=== PATIENT | female | born 1960 | race African-American/Black ===

== ENCOUNTER 2017-11-25 06:48 | Inpatient (IN) | payer SELFPAY ==
[2017-11-25 07:22] LABS: ADD MAN DIFF? NO
[2017-11-25] MEDS: diphenhydrAMINE 50 MG/ML VIAL IM (07:25)
[2017-11-25] MEDS: HALOPERIDOL LACTATE 5 MG/ML VIAL. IM (07:25)
[2017-11-25 07:27] LABS: BASO # 0.1 x10^3/uL (0.0-0.2); BASO % 1 % (0-3); EOS # 0.1 x10^3/uL (0.0-0.7); EOS % 1 % (0-3); HEMATOCRIT 41.6 % (36.0-47.0); HEMOGLOBIN 14.4 g/dL (12.0-15.5); LYMPH # 2.5 x10^3/uL (1.0-4.8); LYMPH % 30 % (24-48); MEAN CORPUSCULAR HEMOGLOBIN 31 pg (25-35); MEAN CORPUSCULAR HGB CONC 35 g/dL (31-37); MEAN CORPUSCULAR VOLUME 91 fL (79-100); MONO # 1.1 x10^3/uL (0.0-1.1); MONO % 13 % (0-9); NEUT # 4.5 x10^3uL (1.8-7.7); NEUT % 55 % (31-73); PLATELET COUNT 273 x10^3/uL (140-400); RED BLOOD COUNT 4.59 x10^6/uL (3.50-5.40); RED CELL DISTRIBUTION WIDTH 14.8 % (11.5-14.5); WHITE BLOOD COUNT 8.2 x10^3/uL (4.0-11.0)
[2017-11-25 07:42] LABS: AMPHETAMINE/METHAMPHETAMINE NEG (NEG); BARBITURATES NEG (NEG)
[2017-11-25 07:43] LABS: ALBUMIN/GLOBULIN RATIO 0.9 (1.0-1.7); BENZODIAZEPINES NEG (NEG); BLOOD UREA NITROGEN 8 mg/dL (7-20); BUN/CREATININE RATIO 6 (6-20); CALCIUM 9.1 mg/dL (8.5-10.1); CANNABINOIDS POS (NEG); COCAINE POS (NEG); CREATININE 1.3 mg/dL (0.6-1.0); ETHANOL, URINE NEG (NEG); GFR 51.1; GLUCOSE 104 mg/dL (70-99); METHADONE NEG (NEG); OPIATES NEG (NEG); PHENCYCLIDINE NEG (NEG); TOTAL BILIRUBIN 1.2 mg/dL (0.2-1.0); TOTAL PROTEIN 8.7 g/dL (6.4-8.2)
[2017-11-25 07:44] LABS: ALK PHOS 115 U/L (46-116); ALT (SGPT) 51 U/L (14-59); ANION GAP 9 (6-14); AST (SGOT) 51 U/L (15-37); CARBON DIOXIDE 25 mmol/L (21-32); CHLORIDE 102 mmol/L (98-107); POTASSIUM 3.1 mmol/L (3.5-5.1); SODIUM 136 mmol/L (136-145)
[2017-11-25 07:44] LABS: ETHANOL < 10 mg/dL (0-10)
[2017-11-25] MEDS ORDERED: AMMONIA AROMATIC 15% INHALANT AMPUL. (13:47)
[2017-11-25] MEDS: IV NORMAL SALINE 1000ML BAG 1,000 ML IV ×2 (16:26→21:10)
[2017-11-25] MEDS: POTASSIUM CHLORIDE 10MEQ 100 ML IV ×4 (17:20→22:30)
[2017-11-25] MEDS ORDERED: POTASSIUM CHLORIDE 40 MEQ in IV 1/2 NORMAL SALINE 500 ML IV (18:00)
[2017-11-25] MEDS: ENOXAPARIN 40 MG/0.4 ML SYRINGE. SQ (18:02)
[2017-11-26] MEDS: IV NORMAL SALINE 1000ML BAG 1,000 ML IV ×2 (02:11→09:36)
[2017-11-26 05:58] LABS: ADD MAN DIFF? NO
[2017-11-26 06:01] LABS: BASO # 0.1 x10^3/uL (0.0-0.2); BASO % 1 % (0-3); EOS # 0.1 x10^3/uL (0.0-0.7); EOS % 2 % (0-3); HEMATOCRIT 36.6 % (36.0-47.0); HEMOGLOBIN 12.3 g/dL (12.0-15.5); LYMPH # 2.2 x10^3/uL (1.0-4.8); LYMPH % 27 % (24-48); MEAN CORPUSCULAR HEMOGLOBIN 31 pg (25-35); MEAN CORPUSCULAR HGB CONC 34 g/dL (31-37); MEAN CORPUSCULAR VOLUME 92 fL (79-100); MONO # 0.8 x10^3/uL (0.0-1.1); MONO % 10 % (0-9); NEUT % 61 % (31-73); PLATELET COUNT 243 x10^3/uL (140-400); RED BLOOD COUNT 3.96 x10^6/uL (3.50-5.40); WHITE BLOOD COUNT 8.3 x10^3/uL (4.0-11.0)
[2017-11-26 06:22] LABS: ALBUMIN 2.7 g/dL (3.4-5.0); ALBUMIN/GLOBULIN RATIO 0.7 (1.0-1.7); ALK PHOS 84 U/L (46-116); ALT (SGPT) 37 U/L (14-59); ANION GAP 8 (6-14); AST (SGOT) 32 U/L (15-37); BLOOD UREA NITROGEN 9 mg/dL (7-20); BUN/CREATININE RATIO 8 (6-20); CALCIUM 8.1 mg/dL (8.5-10.1); CARBON DIOXIDE 24 mmol/L (21-32); CHLORIDE 108 mmol/L (98-107); CREATININE 1.1 mg/dL (0.6-1.0); GFR 61.9; GLUCOSE 94 mg/dL (70-99); POTASSIUM 3.8 mmol/L (3.5-5.1); SODIUM 140 mmol/L (136-145); TOTAL BILIRUBIN 0.6 mg/dL (0.2-1.0); TOTAL PROTEIN 6.7 g/dL (6.4-8.2)
[2017-11-26] MEDS ORDERED: chlordiazePOXIDE HCL 25 MG CAPSULE PO (08:45)
[2017-11-26] MEDS ORDERED: NICOTINE 21MG PATCH. TD (08:45)
[2017-11-26] MEDS ORDERED: ONDANSETRON PF 4 MG/2 ML VIAL. IV (08:45)
[2017-11-26] MEDS ORDERED: ZOLPIDEM 5 MG TABLET. PO (08:45)
[2017-11-26] MEDS ORDERED: MORPHINE SULFATE 2 MG/ML DISP.SYRIN. IV (08:45)
[2017-11-26] MEDS ORDERED: ACETAMINOPHEN 500 MG TABLET PO (08:45)
[2017-11-26] MEDS ORDERED: HYDROcodone/APAP 5/325MG 1 TAB TABLET PO (08:45)
[2017-11-26 09:06] LABS: BILIRUBIN,URINE NEGATIVE (NEG); CLARITY,URINE CLEAR; COLOR,URINE YELLOW; GLUCOSE,URINE NEGATIVE (NEG); NITRITE,URINE NEGATIVE (NEG); PROTEIN,URINE 30 mg/dL (NEG-TRACE); UROBILINOGEN,URINE 0.2 mg/dL (0.2 mg/dL)
[2017-11-26 09:34] LABS: AMORPHOUS SEDIMENT,UR PRESENT /HPF; BACTERIA,URINE FEW /HPF (0-FEW); HYALINE CASTS, URINE OCCASIONAL /HPF
[2017-11-26] MEDS: ENOXAPARIN 40 MG/0.4 ML SYRINGE. SQ (16:53)
== END 2017-11-26 22:15 | disposition home or self-care (01) | DRG 897 ==
LOC: ER 06:48 → 5 NORTH 14:21
DX: F19.10 Other psychoactive substance abuse, uncomplicated (principal); F14.90 Cocaine use, unspecified, uncomplicated; F17.210 Nicotine dependence, cigarettes, uncomplicated; F41.9 Anxiety disorder, unspecified; Z81.1 Family history of alcohol abuse and dependence
CPT/HCPCS: 36415; 51702; 70450; 80053; 80307; 81001; 85025; 87086; 96372; 99285-25; G0480; J1200; J1630; J1650; J2060; J3480; J7030